=== PATIENT | female | born 1975 | race American Indian/Alaskan Native ===

== ENCOUNTER 2016-10-19 09:24 | Emergency (ER) | payer SELFPAY ==
[2016-10-19 10:31] LABS: Basophils % (Auto) 0.5 % (0.0-1.8); Eosinophils % (Auto) 3.5 % (0.0-4.3); Hematocrit 35.9 % (30.3-42.9); Hemoglobin 11.2 gm/dl (10.1-14.3); Mean Corpuscular HGB Conc 31 % (30-34); Platelet Count 369 K/mm3 (140-440); Red Blood Count 5.39 M/mm3 (3.65-5.03); Red Cell Distribution Width 18.4 % (13.2-15.2); White Blood Count 7.7 K/mm3 (4.5-11.0)
[2016-10-19 10:32] LABS: Mean Corpuscular Hemoglobin 21 pg (28-32); Mean Corpuscular Volume 67 fl (79-97)
--- NOTE | 2016-10-19 10:47 | Emergency Department Report ---
Entered by DAVID LAMBERT, acting as scribe for ALBERTINA CARTWRIGHT NP. Chief Complaint: Abdominal Pain Stated Complaint: ABD PAIN Time Seen by Provider: 10/19/16 10:06 - HPI History of Present Illness: 41 y/o non-toxic, non ill-appearing female in no acute distress presents to ED c /o pelvic pain described as throbbing with associated dizziness x 2 weeks. Reports Hx of fibroids. Denies N/V, recent weight loss, vaginal discharge, vaginal bleeding, chest pain, pain with urination, SOB. Reports missed menstrual cycles (last 6 months ago), notes Hx of tubal ligation. - ROS Review of Systems: + pelvic pain, missed menses, dizziness - N/V, chest pain, SOB, pain with urination, vaginal discharge, weight loss, vaginal bleeding - Exam Vital Signs: Vital Signs 10/19/16 09:53 Temperature 98.1 F Pulse Rate 94 H Respiratory 20 Rate Blood Pressure 157/110 O2 Sat by Pulse 100 Oximetry Physical Exam: No abdominal tenderness, point tenderness, rebounding. Pt is non-toxic, non ill appearing, in no acute distress. MSE screening note: Focused history and physical exam performed. Due to findings the following was ordered: CBC, CMP, lipase, amylase, UA, hcg quantitative serum, CT abd/pelvis w/ contrast ED Medical Decision Making - Lab Data Result diagrams: 10/19/16 10:16 ED Disposition for MSE Condition: Stable Instructions: Abdominal Pain (ED) This documentation as recorded by the scribe,DAVID LAMBERT,accurately reflects the service I personally performed and the decisions made by mo,ALBERTINA CARTWRIGHT, BERNADINE.
[2016-10-19 10:49] LABS: Alanine Aminotransferase 11 units/L (7-56); Albumin 4.3 g/dL (3.9-5); Albumin/Globulin Ratio 1.5 %; Amylase 55 units/L (27-131); Anion Gap 15 mmol/L; BUN/Creatinine Ratio 13.33; Blood Urea Nitrogen 8 mg/dL (7-17); Calcium 9.3 mg/dL (8.4-10.2); Carbon Dioxide 30 mmol/L (22-30); Chloride 99.7 mmol/L (98-107); Glucose 117 mg/dL (65-100); Lipase 17 units/L (13-60); Potassium 3.2 mmol/L (3.6-5.0); Sodium 141 mmol/L (137-145); Total Protein 7.1 g/dL (6.3-8.2)
[2016-10-19] MEDS ORDERED: NORCO 5/325 PO ONE (11:45)
[2016-10-19 12:03] LABS: Alkaline Phosphatase 115 units/L (35-129)
--- NOTE | 2016-10-19 12:56 | Ultrasound Report ---
ULTRASOUND PELVIS COMPLETE - TRANSABDOMINAL AND TRANSVAGINAL: INDICATION: Pelvic pain. History of fibroids. COMPARISON: 10/31/2014. FINDINGS: Transabdominal and transvaginal pelvic sonography performed in this patient with LMP of 08/21/2016 again demonstrates an anteverted, heterogeneous, myomatous uterus measuring 7.3 x 4.6 x 3.9 cm. At least 3 dominant fibroids are as follows: 1. A posterior fundal fibroid is 2.4 x 2 x 2.4 cm on image 17. 2. A smaller anterior fundal fibroid is 1.4 x 1 cm, image 15. 3. Another lower uterine segment fibroid measures 1.6 x 1.3 cm. No significant free fluid. Endometrial thickness is 1.4 cm, endovaginal image 9. Approximately 4 mm nonspecific low endometrial/cervical echogenicity with slight shadowing/calcification as on image 28. Right ovary is 3.6 x 2.4 x 2.9 cm with a 2.7 cm follicular cyst. Left ovary unremarkable at 3.4 x 2.1 x 2.2 cm. CONCLUSION: Myomatous uterus again seen with few other incidental findings, as above. Thank you for the opportunity to participate in this patient's care.
--- NOTE | 2016-10-19 13:06 | Emergency Department Report ---
ED Female HPI - General Chief complaint: Abdominal Pain Stated complaint: ABD PAIN Time Seen by Provider: 10/19/16 11:31 Source: patient, RN notes reviewed Mode of arrival: Ambulatory Limitations: No Limitations - History of Present Illness Initial comments: 41-year-old female presents to the emergency department complaining of pelvic pain. Patient reports a history of uterine fibroids and has occasional pelvic pain. For the past 2 weeks she has been having worsening lower pelvic pain. Pain is described as throbbing in nature. Pain does not radiate. She denies associated vaginal bleeding or vaginal discharge. She also denies urinary complaints. She does report occasional difficulty breathing and lightheadedness associated with this pain. There are no other complaints. MD Complaint: pelvic pain -: Gradual, week(s) (2) Location: suprapubic Radiation: non-radiating Severity: moderate Severity scale (0 -10): 5 Quality: other (throbbing) Consistency: intermittent Improves with: none Worsens with: none Are you Now?: No - Related Data Home Medications Medication Instructions Recorded Confirmed Last Taken Cetirizine HCl [Allergy Relief] 10 mg PO DAILY 10/19/16 10/19/16 10/19/16 Ibuprofen [Motrin] 800 mg PO Q8H PRN 10/19/16 10/19/16 Unknown amLODIPine [Norvasc] 5 mg PO DAILY 10/19/16 10/19/16 10/19/16 Previous Rx's Medication Instructions Recorded Last Taken Type HYDROcodone/APAP 5-325 [[place] 1 each PO Q6HR PRN #20 tablet 10/19/16 Unknown Rx 5/325] Allergies Allergy/AdvReac Type Severity Reaction Status Date / Time No Known Allergies Allergy Unverified 10/31/14 02:59 ED Review of Systems ROS: Stated complaint: ABD PAIN Other details as noted in HPI Comment: All other systems reviewed and negative Respiratory: shortness of breath Cardiovascular: syncope (lightheadedness, no loss of consciousness) Genitourinary: as per HPI (pelvic pain) ED Past Medical Hx - Past Medical History Previous Medical History?: Yes Hx Hypertension: Yes - Surgical History Past Surgical History?: Yes Hx Cholecystectomy: Yes Additional Surgical History: Tubal ligation - Family History Family history: no significant - Social History Smoking Status: Never Smoker Substance Use Type: Alcohol, Prescribed - Medications Home Medications: Home Medications Medication Instructions Recorded Confirmed Last Taken Type Cetirizine HCl [Allergy Relief] 10 mg PO DAILY 10/19/16 10/19/16 10/19/16 History HYDROcodone/APAP 5-325 [[place] 1 each PO Q6HR PRN #20 tablet 10/19/16 Unknown Rx 5/325] Ibuprofen [Motrin] 800 mg PO Q8H PRN 10/19/16 10/19/16 Unknown History amLODIPine [Norvasc] 5 mg PO DAILY 10/19/16 10/19/16 10/19/16 History ED Physical Exam - General Limitations: No Limitations General appearance: alert, in no apparent distress - Head Head exam: Present: atraumatic, normocephalic - Eye Eye exam: Present: normal appearance, PERRL, EOMI - ENT ENT exam: Present: normal exam, normal orophraynx, mucous membranes moist - Neck Neck exam: Present: normal inspection, full ROM. Absent: tenderness - Respiratory Respiratory exam: Present: normal lung sounds bilaterally. Absent: respiratory distress - Cardiovascular Cardiovascular Exam: Present: regular rate, normal rhythm, normal heart sounds - GI/Abdominal GI/Abdominal exam: Present: soft, tenderness (mild suprapubic tenderness to palpation), normal bowel sounds. Absent: distended, guarding, rebound - Extremities Exam Extremities exam: Present: normal inspection, full ROM. Absent: tenderness - Back Exam Back exam: Present: normal inspection, full ROM. Absent: tenderness - Neurological Exam Neurological exam: Present: alert, oriented X3. Absent: motor sensory deficit - Skin Skin exam: Present: warm, dry, intact ED Course Vital Signs 10/19/16 10/19/16 10/19/16 09:53 11:32 12:49 Temperature 98.1 F 98.1 F Pulse Rate 94 H 87 Respiratory 20 16 16 Rate Blood Pressure 157/110 Blood Pressure 135/77 [Left] O2 Sat by Pulse 100 99 99 Oximetry ED Medical Decision Making - Lab Data Result diagrams: 10/19/16 10:16 10/19/16 10:16 - Radiology Data Radiology results: report reviewed Pelvic ultrasound reveals multiple uterine fibroids. There are no other acute abnormalities. - Medical Decision Making Lab and imaging results reviewed and discussed with the patient. Patient reports feeling better following medication. Patient will be discharged home at this time to follow up with her GIS SCIENTIST. - Differential Diagnosis pelvic pain, uterine fibroids, UTI Critical care attestation.: If time is entered above; I have spent that time in minutes in the direct care of this critically ill patient, excluding procedure time. ED Disposition Clinical Impression: Pelvic pain Disposition: DISCHARGED TO HOME OR SELFCARE Is pt being admited?: No Condition: Stable Instructions: Abdominal Pain (ED) Additional Instructions: Take all medications as directed. Be sure to follow up with your GIS SCIENTIST. If symptoms worsen, or if new symptoms develop, return to the emergency department. Prescriptions: HYDROcodone/APAP 5-325 [[place] 5/325] 1 each PO Q6HR PRN #20 tablet PRN Reason: Pain Referrals: PRIMARY CARE, [Primary Care Provider] - 3-5 Days Time of Disposition: 13:36
[2016-10-19 13:11] LABS: Bilirubin,Urine NEG (Negative); Blood,Urine SM (Negative); Ketones,Urine NEG (Negative); Leukocyte Esterase,Urine NEG (Negative); Mucus,Urine FEW /HPF; Nitrite,Urine NEG (Negative); Protein,Urine <15 mg/dL mg/dL (Negative); Urobilinogen,Urine < 2.0 mg/dL (<2.0)
[2016-10-19 13:50] VITALS: BP 140/88
== END 2016-10-19 13:50 | disposition home or self-care (01) ==
LOC: ED 09:24
DX: R10.2 Pelvic and perineal pain (principal); I10 Essential (primary) hypertension
CPT/HCPCS: 36415; 76830; 76856; 80053; 81001; 82150; 83690; 84703; 85025

== ENCOUNTER 2017-09-20 01:33 | Emergency (ER) | payer SELFPAY ==
[2017-09-20 01:38] VITALS: BP 190/109
--- NOTE | 2017-09-20 02:49 | Emergency Department Report ---
Abscess Boil HPI - HPI Chief Complaint: Skin/Abscess/Foreign Body Stated Complaint: BOIL Time Seen by Provider: 09/20/17 02:42 Duration: 3 Days Location: Perianal Severity: Moderate History: Yes Pain, Yes Previous History, No Fever, No Purulent Drainage, No Numbness, No Foreign Body, No Insect Bite HPI: perianal abscess x 3 days hx of same and hemorrhoids no bleeding no fever no n/v Home Medications: Home Medications Medication Instructions Recorded Confirmed Last Taken Cetirizine HCl [Allergy Relief] 10 mg PO DAILY 10/19/16 10/19/16 10/19/16 Ibuprofen [Motrin] 800 mg PO Q8H PRN 10/19/16 10/19/16 Unknown amLODIPine [Norvasc] 5 mg PO DAILY 10/19/16 10/19/16 10/19/16 Previous Rx's Medication Instructions Recorded Last Taken Type HYDROcodone/APAP 5-325 [[place] 1 each PO Q6HR PRN #20 tablet 10/19/16 Unknown Rx 5/325] Hydrocortisone/Pramoxine 1 applicatio RC BID PRN #10 gm 09/20/17 Unknown Rx [Proctofoam-Hc Foam] Sulfamethoxazole/Trimethoprim 1 each PO BID #20 tablet 09/20/17 Unknown Rx [Bactrim DS TAB] traMADol [Ultram] 50 mg PO Q8HR PRN #10 tablet 09/20/17 Unknown Rx Allergies/Adverse Reactions: Allergies Allergy/AdvReac Type Severity Reaction Status Date / Time No Known Allergies Allergy Unverified 10/31/14 02:59 ED Review of Systems ROS: Stated complaint: BOIL Other details as noted in HPI Constitutional: denies: chills, fever Eyes: denies: eye pain, eye discharge, vision change ENT: denies: ear pain, throat pain Respiratory: denies: cough, shortness of breath, wheezing Cardiovascular: denies: chest pain, palpitations Endocrine: no symptoms reported Gastrointestinal: denies: abdominal pain, nausea, diarrhea Genitourinary: other (abscess perianal ). denies: urgency, dysuria, discharge Musculoskeletal: denies: back pain, joint swelling, arthralgia Skin: denies: rash, lesions Neurological: denies: headache, weakness, paresthesias Psychiatric: denies: anxiety, depression Hematological/Lymphatic: denies: easy bleeding, easy bruising ED Past Medical Hx - Past Medical History Previous Medical History?: Yes Hx Hypertension: Yes - Surgical History Past Surgical History?: Yes Hx Cholecystectomy: Yes Additional Surgical History: Tubal ligation - Social History Smoking Status: Never Smoker Substance Use Type: None - Medications Home Medications: Home Medications Medication Instructions Recorded Confirmed Last Taken Type Cetirizine HCl [Allergy Relief] 10 mg PO DAILY 10/19/16 10/19/16 10/19/16 History HYDROcodone/APAP 5-325 [[place] 1 each PO Q6HR PRN #20 tablet 10/19/16 Unknown Rx 5/325] Ibuprofen [Motrin] 800 mg PO Q8H PRN 10/19/16 10/19/16 Unknown History amLODIPine [Norvasc] 5 mg PO DAILY 10/19/16 10/19/16 10/19/16 History Hydrocortisone/Pramoxine 1 applicatio RC BID PRN #10 gm 09/20/17 Unknown Rx [Proctofoam-Hc Foam] Sulfamethoxazole/Trimethoprim 1 each PO BID #20 tablet 09/20/17 Unknown Rx [Bactrim DS TAB] traMADol [Ultram] 50 mg PO Q8HR PRN #10 tablet 09/20/17 Unknown Rx ED Abscess Boil Physical Exam - Exam General: Vital signs noted. No distress. Alert and acting appropriately. Front/Back of Body, Lg (Color): 1 - abscess 1 cm gluteal fold perianal Exam: Yes Tenderness, Yes Normal Neurologic Exam, Yes Normal Circulation, No Fluctuance, No Surrounding Cellulites/Erythema, No Lymphangitis, No Crepitation , No Heart Murmur I & D Note - I & D Note I & D Note: I&D left buttock perianal abscess less than 1 cm , area cleaned with betadine solution 18 needle straight aspiratin approx 5 cc , purulent drainage , pt states pain relieved immediatley pt given wound care instructions , verbalized agreement and understanding of same pt tolerated with minimal distress. ED Course Vital Signs 09/20/17 09/20/17 01:33 02:03 Temperature 99.3 F 99.3 F Pulse Rate 111 H 105 H Respiratory 18 18 Rate Blood Pressure 190/109 190/109 O2 Sat by Pulse 96 99 Oximetry Critical care attestation.: If time is entered above; I have spent that time in minutes in the direct care of this critically ill patient, excluding procedure time. ED Medical Decision Making - Medical Decision Making perianal abscess x 3 days hx of same, small fissure, I&D of same see procedure note, plan: sitz bath, bactrim, ultram, follow up with pcp in 2 days as scheduled for wound check pt verbalized agreement and understanding of same. ED Disposition Clinical Impression: Abscess Disposition: DC-01 TO HOME OR SELFCARE Is pt being admited?: No Does the pt Need Aspirin: No Condition: Good Instructions: Abscess Incision and Drainage (ED), Abscess (ED), Sitz Bath (GEN) Prescriptions: Hydrocortisone/Pramoxine [Proctofoam-Hc Foam] 1 applicatio RC BID PRN #10 gm PRN Reason: Hemorrhoids Sulfamethoxazole/Trimethoprim [Bactrim DS TAB] 1 each PO BID #20 tablet traMADol [Ultram] 50 mg PO Q8HR PRN #10 tablet PRN Reason: Pain Referrals: [facility] [Outside] - 3-5 Days Forms: Accompanied Note, Work/School Release Form(ED) Time of Disposition: 02:53
== END 2017-09-20 03:00 | disposition home or self-care (01) ==
LOC: ED 01:33
DX: K61.0 Anal abscess (principal); I10 Essential (primary) hypertension; Z90.49 Acquired absence of other specified parts of digestive tract; Z98.51 Tubal ligation status

== ENCOUNTER 2017-10-12 20:14 | Emergency (ER) | payer SELFPAY ==
[2017-10-12 21:04] VITALS: BP 173/98
--- NOTE | 2017-10-13 00:29 | Emergency Department Report ---
HPI - General Chief Complaint: Skin/Abscess/Foreign Body Time Seen by Provider: 10/12/17 23:56 - HPI HPI: Patient is a 42-year-old female with a history of perirectal abscess 1 month who presents to ED today stating that she feels like abscess his back. Patient states she was seen about a month ago and abscesses drained. Sensation is without antibiotics and followed up with her primary care physician. Patient sits up but days ago she fell a little bump on the left side of her buttock closer to her rectum. She denies suicidal chills/nausea vomiting/difficulty making bowel movement or discharge ED Past Medical Hx - Past Medical History Hx Hypertension: Yes - Surgical History Hx Cholecystectomy: Yes Additional Surgical History: Tubal ligation - Social History Smoking Status: Never Smoker Substance Use Type: None - Medications Home Medications: Home Medications Medication Instructions Recorded Confirmed Last Taken Type Cetirizine HCl [Allergy Relief] 10 mg PO DAILY 10/19/16 10/19/16 10/19/16 History HYDROcodone/APAP 5-325 [[place] 1 each PO Q6HR PRN #20 tablet 10/19/16 Unknown Rx 5/325] Ibuprofen [Motrin] 800 mg PO Q8H PRN 10/19/16 10/19/16 Unknown History amLODIPine [Norvasc] 5 mg PO DAILY 10/19/16 10/19/16 10/19/16 History Hydrocortisone/Pramoxine 1 applicatio RC BID PRN #10 gm 09/20/17 Unknown Rx [Proctofoam-Hc Foam] Sulfamethoxazole/Trimethoprim 1 each PO BID #20 tablet 10/13/17 Unknown Rx [Bactrim DS TAB] traMADol [Ultram 50 MG tab] 50 mg PO Q8HR PRN #10 tablet 10/13/17 Unknown Rx ED Review of Systems ROS: Stated complaint: ABCESS IN PUBIC AREA Other details as noted in HPI Constitutional: denies: chills, fever Eyes: denies: eye pain, eye discharge, vision change ENT: denies: ear pain, throat pain Respiratory: denies: cough, shortness of breath, wheezing Cardiovascular: denies: chest pain, palpitations Endocrine: no symptoms reported Gastrointestinal: denies: abdominal pain, nausea, diarrhea Genitourinary: denies: urgency, dysuria, discharge Musculoskeletal: denies: back pain, joint swelling, arthralgia Skin: denies: rash, lesions Neurological: denies: headache, weakness, paresthesias Psychiatric: denies: anxiety, depression Hematological/Lymphatic: denies: easy bleeding, easy bruising Physical Exam - Physical Exam Vital Signs: Vital Signs 10/12/17 20:57 Temperature 98.2 F Pulse Rate 88 Respiratory 18 Rate Blood Pressure 173/98 O2 Sat by Pulse 99 Oximetry Physical Exam: GENERAL: Alert and oriented x3, no apparent distress, Normal Gait, atraumatic. LUNGS: Symetrical with respiration, No wheezing, no rales or crackles, CTAB. HEART: S1, S2 present, regular rate and rhythm without murmur, no rubs, no gallops. Non tender to palpation GENITOURINARY: External genitalia without erythema, exudate or discharge. Small , mildly tender mass palpated at 9:00 on the left buttock region. Deep, non- fluctuant, no pussy drainage no signs of hemorrhoids, no bleeding. SKIN: Warm and dry, No lesions, No ulceration or induration present. ED Course Vital Signs 10/12/17 20:57 Temperature 98.2 F Pulse Rate 88 Respiratory 18 Rate Blood Pressure 173/98 O2 Sat by Pulse 99 Oximetry ED Medical Decision Making - Medical Decision Making 42-year-old female presents with perirectal scarring from abscess drainage/ abscess ED course: I discussed the patient and that there are no signs of abscess and needs to be drained today. I discussed the patient that mass felt to be an old abscess. I discussed the patient would need to antibiotic therapy, pain medication. Discussed the patient to follow up with the primary care physician. Vital signs are normal patient is in acute distress Critical care attestation.: If time is entered above; I have spent that time in minutes in the direct care of this critically ill patient, excluding procedure time. ED Disposition Clinical Impression: Jordana-rectal abscess Disposition: TO HOME OR SELFCARE Is pt being admited?: No Does the pt Need Aspirin: No Condition: Stable Instructions: Anorectal Abscess and Anal Fistula (ED), Abscess (ED) Additional Instructions: Make sure to follow up with the primary care physician as discussed. Take all your medications as you've been prescribed. If you have any worsening symptoms or develop new symptoms please return to ED immediately. Prescriptions: Sulfamethoxazole/Trimethoprim [Bactrim DS TAB] 1 each PO BID #20 tablet traMADol [Ultram 50 MG tab] 50 mg PO Q8HR PRN #10 tablet PRN Reason: Pain Referrals: PRIMARY CARE, [Primary Care Provider] - 3-5 Days LILLIAN MARTINEZ MD [Staff Physician] - 3-5 Days Forms: Work/School Release Form(ED) Time of Disposition: 00:31
[2017-10-13] MEDS ORDERED: MOTRIN PO ONE (00:31)
[2017-10-13] MEDS ORDERED: BACTRIM DS PO ONE (00:31)
== END 2017-10-13 00:45 | disposition home or self-care (01) ==
LOC: ED 20:14
DX: K61.1 Rectal abscess (principal); I10 Essential (primary) hypertension; Z90.49 Acquired absence of other specified parts of digestive tract; Z98.51 Tubal ligation status
CPT/HCPCS: 99282